=== PATIENT | female | born 1975 | race Caucasian/White ===

== ENCOUNTER 2018-08-30 08:27 | Day surgery (SDC) | payer OTHER ==
[~2018-08-30] VITALS: Ht 160 cm; Wt 61.3 kg
[~2018-08-30 08:27] MED LIST: ACET325 PO; ALBIPROI INH; ASPI325EC; AZIT250 PO; CIPR500 PO; CLIN300 PO; CODACE30; CODACE30 PO; CRUTCH2 USE; DOXY100 PO; ERGO50000 PO; HYDACE5 PO; HYDGUAL120 PO; INSR10I; INSUASPI; INSULANI; INSULANI SC; INSULANPEN SC; LEVSOD50 PO; LORA2 PO; METO10 PO; METR500 PO; NAPR220 PO; NAPR250 PO; NAPR500 PO; NAPR550 PO; NICO14TP TOP; Novolog100 UNIT/1 SC; OMEP20ER PO; ONDA4 PO; ONDA8ODT MM; PANT20 PO; PROACE100 PO; PROC10 PO; PROM25 PO; RXHYDACE PO; RXTRAM50 PO; Synthroid88 MCG PO; TRAM50 PO; Zofran4 MG PO
--- NOTE | 2018-08-30 09:42 | NUR ---
08/30/18 0942 Nicole Ramos DISCUSSED PATIENT WITH DR. BANDA, SLEEP STUDY DONE IN 2016 WAS NEGATIVE FOR DORIAN. PATIENT IS APPROPRIATE FOR NURSE SEDATION, DR. BANDA IS IN AGREEMENT. DR. POON NOTIFIED.
== END 2018-08-30 10:49 | disposition home or self-care (01) ==
LOC: ORSCSDS 08:27
PROVIDERS: Student in an Organized Health Care Education/Training Program
PROC: 0DB68ZX Excision of Stomach, Via Natural or Artificial Opening Endoscopic, Diagnostic (ICD-10-PCS; principal; 2018-08-30 09:45)
PROC: 0DB98ZX Excision of Duodenum, Via Natural or Artificial Opening Endoscopic, Diagnostic (ICD-10-PCS; principal; 2018-08-30 09:45)
PROC: 0DB58ZX Excision of Esophagus, Via Natural or Artificial Opening Endoscopic, Diagnostic (ICD-10-PCS; principal; 2018-08-30 09:45)
DX: R19.7 Diarrhea, unspecified (principal); R14.0 Abdominal distension (gaseous); R10.9 Unspecified abdominal pain; K29.80 Duodenitis without bleeding; E10.8 Type 1 diabetes mellitus with unspecified complications; J45.909 Unspecified asthma, uncomplicated; E03.9 Hypothyroidism, unspecified; F43.10 Post-traumatic stress disorder, unspecified; F41.8 Other specified anxiety disorders; Z87.891 Personal history of nicotine dependence; Z79.4 Long term (current) use of insulin; Z79.899 Other long term (current) drug therapy
CPT/HCPCS: 82947; 88305; 88342; J2704; J7120

== ENCOUNTER → 2019-07-18 | Outpatient (CLI) | payer OTHER ==
[2019-07-18 11:19] LABS: BASOPHILS ABSOLUTE AUTO 0.05 K/mm3 (0.00-0.23); BASOPHILS PERCENT AUTO 1 % (0-2); EOSINOPHILS ABSOLUTE AUTO 0.09 K/mm3 (0.00-0.68); EOSINOPHILS PERCENT AUTO 1 % (0-6); Hematocrit 40.9 % (33.0-51.0); Hemoglobin 13.4 g/dL (11.5-16.0); IMMATURE GRAN ABSOLUTE AUTO 0.02 K/mm3 (0.00-0.10); IMMATURE GRAN PERCENT AUTO 0 % (0-1); LYMPHOCYTES ABSOLUTE AUTO 1.57 K/mm3 (0.84-5.20); LYMPHOCYTES PERCENT AUTO 21 % (21-46); MONOCYTES ABSOLUTE AUTO 0.43 K/mm3 (0.16-1.47); MONOCYTES PERCENT AUTO 6 % (4-13); Mean Corpuscular HGB 29.8 pg (26.0-34.0); Mean Corpuscular HGB Conc 32.8 g/dL (31.5-36.5); Mean Corpuscular Volume 91 fL (80-100); Mean Platelet Volume 9.9 fL (9.1-12.4); NEUTROPHILS ABSOLUTE AUTO 5.16 K/mm3 (1.96-9.15); NEUTROPHILS PERCENT AUTO 71 % (41-73); Platelet Count 325 K/mm3 (150-400); RDW Coefficient Variation 13.7 % (11.7-14.2); RDW Standard Deviation 46.1 fL (35.1-46.3); Red Blood Cell Count 4.49 M/mm3 (3.80-5.20); White Blood Cell Count 7.32 K/mm3 (4.00-11.30)
[2019-07-18 11:23] LABS: Bun/Creatinine Ratio 12.1 (12.0-20.0); Calcium, Blood 8.5 mg/dL (8.5-10.1); Creatinine, Blood 1.07 mg/dL (0.40-1.00); Potassium, Blood 4.2 mmol/L (3.5-5.5)
== END | disposition home or self-care (01) ==
LOC: LAB EV 11:11 → LAB SHORT 11:11
PROVIDERS: Physician Assistant Surgical
DX: R06.02 Shortness of breath (principal)
CPT/HCPCS: 80048; 84484; 85025; 85379

== ENCOUNTER 2020-10-12 06:15 | Day surgery (SDC) | payer OTHER ==
[~2020-10-12] VITALS: Ht 157.5 cm; Wt 58.0 kg
[~2020-10-12 06:15] MED LIST changes: +Atarax10 MG PO; +EMERGEN-C PO; +EUTHYROX88 MCG PO; +GVOKE HYPO1 MG/0.21; +HUMALOG KW100 UNIT/1 SC; +INSULANPEN; +MULVITA PO; +Nexium40 MG PO; +ONDA4ODT MM; +PARO10 PO; +PROAIR DIGIHAL90 MCG INH; +[UNRECOGNIZED DRUG - OTHER] PO
--- NOTE | 2020-10-12 06:23 | NUR ---
Patient up to Ambulate independently. Gait steady. History, Chart, Medications and Allergies reviewed before start of procedure. Lungs clear T/O to Auscultation. Patient confirms NPO status and agrees with scheduled surgery. Pre-Op teaching done. Pt verbalizes understanding. Patient States Post-Procedure ride home has been arranged.
--- NOTE | 2020-10-12 07:37 | NUR ---
PT RECENTLY MED WITH INSULIN AFTER DISCUSSING CBG WITH ANESTHESIA WELL DR NICHOLE. GIVING LR, DISCUSSED WITH DR NICHOLE AND ANESHESIA PT VOIDS ON HER OWN AND GFR IS 55 LABWORK.
--- NOTE | 2020-10-12 08:46 | NUR ---
10/12/20 0846 Umberto Sorto History, Chart, Medications and Allergies reviewed before start of procedure. MONITOR INTACT WITH CONTINUOUS PULSE OXIMETRY AND INTERMITTENT BP. 3-LEAD EKG MONITORED DURING PROCEDURE. Bite Block Placed. See Anesthesia record: DR GONZALEZ. O2 VIA N/C INTACT THROUGHOUT SEDATION/PROCEDURE.
--- NOTE | 2020-10-12 11:23 | NUR ---
PT ROUSES TO VERBAL STIMULI BUT FALLS QUICKLY BACK TO SLEEP. DENIES NEEDS FOR ANYTHING WHEN ASKED. WILL CONTINUE TO MONITOR PT.
--- NOTE | 2020-10-12 11:40 | NUR ---
PT WITH A WEAK COUGH, ASSISTED PT TO REPOSITION IN BED AND SIT A LITTLE MORE UPRIGHT. PT GIVEN WATER TO DRINK WHICH SHE TOLERATED WELL. DENIES NAUSEA AND REPORTS PAIN IS ABOUT 2/10 AT THIS TIME. PT DOES FALL BACK TO SLEEP QUICKLY.
--- NOTE | 2020-10-12 12:20 | NUR ---
PT ABLE TO TAKE SIPS OF WATER AND EAT A FEW CRACKERS AND APPLESAUCE. REVIEWED DISCHARGE INSTRUCTIONS WITH PATIENT. DERMABOND AND SUTURES INTACT. NO DRAINAGE. PT NEEDING MINIMAL ASSISTANCE TO GET DRESSED. RX FOR NORCO PROVIDED. PT VERY APPRECIATIVE FOR OUR ASSISTANCE AND REPORTS READY TO GO HOME.
--- NOTE | 2020-10-12 12:29 | NUR ---
Discharged via wheelchair to private car for ride home.
== END 2020-10-12 12:25 | disposition home or self-care (01) ==
LOC: ORSCMMR 06:15 → ORD 07:30 → ORSCMMR 07:30
PROVIDERS: Surgery
PROC: 0DB98ZX Excision of Duodenum, Via Natural or Artificial Opening Endoscopic, Diagnostic (ICD-10-PCS; principal; 2020-10-12 07:30)
PROC: 0WQF0ZZ Repair Abdominal Wall, Open Approach (ICD-10-PCS; principal; 2020-10-12 07:30)
PROC: 0FT44ZZ Resection of Gallbladder, Percutaneous Endoscopic Approach (ICD-10-PCS; principal; 2020-10-12 07:30)
PROC: 0DB78ZX Excision of Stomach, Pylorus, Via Natural or Artificial Opening Endoscopic, Diagnostic (ICD-10-PCS; principal; 2020-10-12 07:30)
DX: K81.1 Chronic cholecystitis (principal); K81.0 Acute cholecystitis; K43.9 Ventral hernia without obstruction or gangrene; K29.80 Duodenitis without bleeding; R10.13 Epigastric pain; K90.0 Celiac disease; K29.70 Gastritis, unspecified, without bleeding; K21.9 Gastro-esophageal reflux disease without esophagitis; E11.9 Type 2 diabetes mellitus without complications; E03.9 Hypothyroidism, unspecified; M79.7 Fibromyalgia; Z79.899 Other long term (current) drug therapy; Z87.891 Personal history of nicotine dependence
CPT/HCPCS: 82947; 84703; 88304; 88305; 88342; A9270; J0690; J1815; J2060; J2250; J2370; J2405; J2704; J2765; J3010; J7120

== ENCOUNTER → 2020-11-21 | Outpatient (CLI) | payer OTHER ==
[2020-11-21 13:18] LABS: BASOPHILS ABSOLUTE AUTO 0.02 K/mm3 (0.00-0.23); BASOPHILS PERCENT AUTO 0 % (0-2); EOSINOPHILS ABSOLUTE AUTO 0.04 K/mm3 (0.00-0.68); EOSINOPHILS PERCENT AUTO 1 % (0-6); Hematocrit 43.4 % (33.0-51.0); Hemoglobin 14.4 g/dL (11.5-16.0); IMMATURE GRAN ABSOLUTE AUTO 0.02 K/mm3 (0.00-0.10); IMMATURE GRAN PERCENT AUTO 0 % (0-1); LYMPHOCYTES ABSOLUTE AUTO 0.94 K/mm3 (0.84-5.20); LYMPHOCYTES PERCENT AUTO 13 % (21-46); MONOCYTES ABSOLUTE AUTO 0.64 K/mm3 (0.16-1.47); MONOCYTES PERCENT AUTO 9 % (4-13); Mean Corpuscular HGB 30.5 pg (26.0-34.0); Mean Corpuscular HGB Conc 33.2 g/dL (31.5-36.5); Mean Corpuscular Volume 92 fL (80-100); Mean Platelet Volume 9.5 fL (9.1-12.4); NEUTROPHILS ABSOLUTE AUTO 5.81 K/mm3 (1.96-9.15); NEUTROPHILS PERCENT AUTO 78 % (41-73); Platelet Count 304 K/mm3 (150-400); RDW Coefficient Variation 13.9 % (11.7-14.2); RDW Standard Deviation 47.6 fL (35.1-46.3); Red Blood Cell Count 4.72 M/mm3 (3.80-5.20); White Blood Cell Count 7.47 K/mm3 (4.00-11.30)
[2020-11-21 13:27] LABS: Alanine Aminotransfer (ALT/SGP 24 U/L (12-78); Albumin, Blood 3.5 g/dL (3.4-5.0); Albumin/Globulin Ratio 0.9 (0.8-1.8); Alk Phos 94 U/L (40-126); Anion Gap 8 mmol/L (6-16); Aspartate Aminotrans (AST/SGOT 18 U/L (12-37); Bilirubin, Total 0.3 mg/dL (0.1-1.0); Blood Urea Nitrogen 11 mg/dL (8-24); Bun/Creatinine Ratio 12.1 (12.0-20.0); CO2, Blood 28 mmol/L (21-32); Calcium, Blood 8.5 mg/dL (8.5-10.1); Chloride, Blood 104 mmol/L (98-108); Creatinine, Blood 0.91 mg/dL (0.40-1.00); Globulin, Blood 3.7 g/dL (2.2-4.0); Glomerular Filtration Rate >60 (60-); Glucose, Blood 232 mg/dL (70-99); Potassium, Blood 4.4 mmol/L (3.5-5.5); Sodium, Blood 140 mmol/L (136-145); Total Protein, Blood 7.2 g/dL (6.4-8.2)
== END | disposition home or self-care (01) ==
LOC: LAB 13:11 → LAB EV 13:11 → LAB SHORT 13:11
PROVIDERS: Family Medicine
DX: U07.1 COVID-19 (principal)
CPT/HCPCS: 80053; 85025; 85379

== ENCOUNTER 2023-09-30 03:16 | Observation (INO) | payer OTHER ==
[~2023-09-30] VITALS: Ht 160 cm; Wt 63.5 kg
[2023-09-30] MEDS ORDERED: Droperidol 5 mg/2 ml Vial IV ONE (03:50)
[2023-09-30] MEDS ORDERED: Ondansetron HCl 2 MG / ML 2ML Vial IV ONE (03:50)
[2023-09-30 04:05] LABS: BASOPHILS ABSOLUTE AUTO 0.06 K/mm3 (0.00-0.23); BASOPHILS PERCENT AUTO 1 % (0-2); EOSINOPHILS ABSOLUTE AUTO 0.09 K/mm3 (0.00-0.68); EOSINOPHILS PERCENT AUTO 1 % (0-6); Hematocrit 49.8 % (33.0-51.0); IMMATURE GRAN ABSOLUTE AUTO 0.05 K/mm3 (0.00-0.10); IMMATURE GRAN PERCENT AUTO 1 % (0-1); LYMPHOCYTES PERCENT AUTO 20 % (21-46); MONOCYTES ABSOLUTE AUTO 0.32 K/mm3 (0.16-1.47); MONOCYTES PERCENT AUTO 3 % (4-13); Mean Corpuscular HGB 28.9 pg (26.0-34.0); Mean Corpuscular HGB Conc 32.1 g/dL (31.5-36.5); Mean Corpuscular Volume 90 fL (80-100); Mean Platelet Volume 9.2 fL (9.1-12.4); NEUTROPHILS ABSOLUTE AUTO 8.24 K/mm3 (1.96-9.15); NEUTROPHILS PERCENT AUTO 75 % (41-73); Platelet Count 375 K/mm3 (150-400); RDW Coefficient Variation 12.9 % (11.7-14.2); RDW Standard Deviation 42.5 fL (35.1-46.3); Red Blood Cell Count 5.54 M/mm3 (3.80-5.20); White Blood Cell Count 10.96 K/mm3 (4.00-11.30)
[2023-09-30 04:08] LABS: Base Excess Venous -3.3 mmol/L; Bicarbonate Venous 21.6 mmol/L (24.0-30.0); PCO2 Venous 37.8 mmHg (38-42); pH Blood Venous 7.37 (7.34-7.37)
[2023-09-30 04:43] LABS: Beta-hydroxybutyrate 21.5 mg/dL (0.2-2.8)
[2023-09-30 05:04] LABS: Alanine Aminotransfer (ALT/SGP 53 U/L (12-78); Albumin, Blood 4.5 g/dL (3.4-5.0); Albumin/Globulin Ratio 1.1 (0.8-1.8); Alk Phos 132 U/L (50-136); Anion Gap 18 mmol/L (3-11); Aspartate Aminotrans (AST/SGOT 41 U/L (12-37); Bilirubin, Total 1.2 mg/dL (0.1-1.0); Blood Urea Nitrogen 21 mg/dL (8-24); Bun/Creatinine Ratio 18.9 (12.0-20.0); CO2, Blood 20 mmol/L (21-32); Calcium, Blood 10.7 mg/dL (8.5-10.1); Chloride, Blood 99 mmol/L (98-108); Creatinine, Blood 1.11 mg/dL (0.40-1.00); Globulin, Blood 4.1 g/dL (2.2-4.0); Glomerular Filtration Rate 62 (60-); Glucose, Blood 674 mg/dL (70-99); Potassium, Blood 4.5 mmol/L (3.5-5.5); Sodium, Blood 132 mmol/L (136-145); Total Protein, Blood 8.6 g/dL (6.4-8.2)
[2023-09-30] MEDS ORDERED: Lactated Ringer's 2,000 ML IV SCH (05:05)
[2023-09-30] MEDS ORDERED: Insulin Human Regular 100 UNIT in NS 100 ML IV SCH ×2 (05:10→06:25)
[2023-09-30 05:22] LABS: Ethanol (Alcohol), Blood, Med <3 mg/dL; Magnesium, Blood 1.9 mg/dL (1.6-2.4)
[2023-09-30 05:27] LABS: Source, Urine Clean Catch
[2023-09-30 05:33] LABS: Appearance, Urine Clear (Clear); Bilirubin, Urine Neg (Neg); Blood, Urine Neg (Neg); Color, Urine Yellow (P-Yellow); Glucose Qualitative, Urine 4+ (Neg); Ketones, Urine 3+ (Neg); Leukocyte Esterase, Urine Neg (Neg); Nitrite, Urine Neg (Neg); Protein, Urine Neg (Neg); Urobilinogen, Urine NORM (Normal); pH, Urine 6.5 (5.0-8.0)
[2023-09-30] MEDS ORDERED: NS 1,000 ML IV ONE (05:40)
[2023-09-30] MEDS ORDERED: Ondansetron HCl 2 MG / ML 2ML Vial IV PRN (05:40)
[2023-09-30] MEDS ORDERED: Metoclopramide HCl 5MG / ML 2ML Vial IV PRN (05:40)
[2023-09-30 05:44] LABS: U Amphetamine Screen Not Detected; U Barbituate Screen Not Detected; U Benzodiazapine Screen Not Detected; U Buprenorphine Screen Not Detected; U Cannabinoids Screen DETECTED; U Cocaine Screen Not Detected; U Methadone Screen Not Detected; U Methamphetamine Screen Not Detected; U Opiates Screen Not Detected; U Oxycodone Screen Not Detected; U Phencyclidine Screen Not Detected
[2023-09-30] MEDS ORDERED: Loperamide HCl 2 MG Cap PO PRN (05:45)
[2023-09-30] MEDS ORDERED: FentaNYL Citrate 50 MCG/ML 2 ML Injection IV PRN (06:30)
[2023-09-30 07:04] LABS: Bun/Creatinine Ratio 21.3 (12.0-20.0); Calcium, Blood 9.9 mg/dL (8.5-10.1); Creatinine, Blood 0.94 mg/dL (0.40-1.00); Potassium, Blood 4.3 mmol/L (3.5-5.5)
[2023-09-30] MEDS ORDERED: Enoxaparin 40 MG/0.4 ML SYR SC SCH (09:00)
[2023-09-30 10:36] VITALS: BP 122/69
[2023-09-30 11:59] LABS: Bun/Creatinine Ratio 20.6 (12.0-20.0); Calcium, Blood 9.7 mg/dL (8.5-10.1); Creatinine, Blood 0.88 mg/dL (0.40-1.00); Potassium, Blood 3.7 mmol/L (3.5-5.5)
--- NOTE | 2023-09-30 12:01 | NUR ---
ADMISSION NOTE: PATIENT ARRIVES TO ROOM AT 1034 VIA GURNEY FROM ER FOR DX'S OF DKA. PATIENT TRANSFERRED TO BED c SBA. PATIENT ORIENTATED TO ROOM AND CALL SYSTEM. MEDRIC, ADMISSION, SKIN ASSESSMENT c 2 RN'S VERIFIED COMPLETED. PATIENT A/OX4, CALM, PLEASANT AND COOPERATIVE c CARE. PATIENT FOLLOWS COMMAND WELL, LUNGS CLEAR T/O TO AUSCULTATION. DENIES SOB, N/V, DIZZINESS, CP/PRESSURE, ON TELE, SR HR IN THE 80'S BPM. VITAL SIGNS REVIEWED, 194 BS TAKEN AT 1142, NOTIFIED DR. SANTIAGO c THIS RESULT. NO NEW ORDERS RECEIVED. PER DR. SANTIAGO IF PATIENT TOLERATING LUNCH POSSIBLE DISCHARGE THIS PM. PATIENT RESTING IN BED AT THIS TIME c CALL LIGHT IN REACH.
[2023-09-30 15:25] VITALS: BP 125/68
--- NOTE | 2023-09-30 16:17 | NUR ---
SHIFT/DISCHARGE SUMMARY: PATIENT A/OX4, CALM, PLEASANT AND COOPERATIVE c CARE. PATIENT TOLERATING LUNCH AND DRINKING FLUIDS WITHOUT ANY DIFFICULTY SWALLOWING, DENIES N/V. PATIENT SLEPT ON/OFF, CONTINENCE OF BLADDER, UP TO BATHROOM/BACK IN BED INDEPENDENTLY. VITAL SIGNS REVIEWED. PIV TO R WRIST AND R AC DC'D. PATIENT HAS NO COMPLAINTS OR DENIES NEW CONCERNED THIS SHIFT. PATIENT DISCHARGE HOME. DISCHARGE INSTRUCTIONS PACKET GIVEN TO PATIENT. EDUCATE PATIENT REGARDING ADMITTING DX'S OF DKA, S/S, TX, SELF CARE, AND TO F/U c PCP. PATIENT VERBALIZED UNDERSTANDING AND NO FURTHER QUESTIONS. PATIENT HAS NO NEW PRESCRIBED RX. ALL PATIENT PERSONAL BELONGINGS WERE SENT HOME c THE PATIENT. PATIENT LEFT THE ROOM AT 1605 AND WAS TRANSPORTED BY [facility] STAFF GERARDO TO PATIENT ENTRANCE.
== END 2023-09-30 16:30 | disposition home or self-care (01) ==
LOC: ER 03:16 → ERHOLD 03:17 → MEDS 10:36
PROVIDERS: Emergency Medicine; ADMIT Internal Medicine
DX: E10.10 Type 1 diabetes mellitus with ketoacidosis without coma (principal); E86.0 Dehydration; M06.9 Rheumatoid arthritis, unspecified; K52.9 Noninfective gastroenteritis and colitis, unspecified; Z88.8 Allergy status to other drugs, medicaments and biological substances; Z88.2 Allergy status to sulfonamides; Z88.0 Allergy status to penicillin; Z79.4 Long term (current) use of insulin; Z79.899 Other long term (current) drug therapy
CPT/HCPCS: 36415; 71045; 80048; 80053; 81003; 81025; 82010; 82803; 82947; 83605; 83690; 83735; 84145; 85025; 93005; 93010; 96361; 96374; 96375; 99285-25; G0378; J1790; J1815; J2405; J7030; J7120

== ENCOUNTER 2024-03-05 09:44 | Emergency (ER) | payer OTHER ==
[~2024-03-05] VITALS: Ht 160 cm; Wt 65.8 kg
[2024-03-05] MEDS ORDERED: Gabapentin 300 MG Cap PO ONE (10:40)
[2024-03-05] MEDS ORDERED: Methocarbamol 500 MG Tab PO ONE (10:40)
[2024-03-05] MEDS ORDERED: Methyl Salicylate/Menth/Camph 57 GM TUBE TOP ONE (10:40)
[2024-03-05] MEDS ORDERED: Acetaminophen 500 MG Tab PO ONE (10:40)
[2024-03-05] MEDS ORDERED: Amitriptyline HCl 50 MG Tab PO ONE (10:40)
[2024-03-05] MEDS ORDERED: Ketorolac Tromethamine 30mg Vial IM ONE (10:40)
[2024-03-05] MEDS ORDERED: Amitriptyline HCl 10 MG Tab PO ONE (11:15)
[2024-03-05] MEDS ORDERED: FAMO20 PO (13:10)
[2024-03-05] MEDS ORDERED: GABA300 PO (13:10)
[2024-03-05] MEDS ORDERED: Robaxin750 MG PO (13:10)
[2024-03-05 13:49] VITALS: BP 135/85
== END 2024-03-05 13:45 | disposition home or self-care (01) ==
LOC: ER 09:44
DX: S29.012A Strain of muscle and tendon of back wall of thorax, initial encounter (principal); M62.838 Other muscle spasm; E10.9 Type 1 diabetes mellitus without complications; X58.XXXA Exposure to other specified factors, initial encounter; Z87.891 Personal history of nicotine dependence; Z79.899 Other long term (current) drug therapy; Z79.4 Long term (current) use of insulin; Z88.0 Allergy status to penicillin; Z88.2 Allergy status to sulfonamides; Z91.018 Allergy to other foods; Z91.048 Other nonmedicinal substance allergy status; Z88.6 Allergy status to analgesic agent; Z88.8 Allergy status to other drugs, medicaments and biological substances
CPT/HCPCS: 73030; 96372; 99283-25; A9270; J1885